=== PATIENT | female | born 1995 | race Caucasian/White ===

== ENCOUNTER 2020-05-03 15:29 | Emergency (ER) | payer OTHER ==
[~2020-05-03] VITALS: Ht 167.6 cm; Wt 67.1 kg
[2020-05-03 15:59] VITALS: BP 122/88
--- NOTE | 2020-05-03 16:02 | NUR ---
PT HAVING BLOOD DRAWN IN TRIAGE.
--- NOTE | 2020-05-03 16:05 | NUR ---
PT TAKEN TO US VIA W/C.
[2020-05-03 16:11] LABS: BASOPHILS % (AUTO) 0.6 % (0.0-2.0); EOSINOPHILS # (AUTO) 0.1 K/uL (0-0.4); EOSINOPHILS % (AUTO) 1.2 % (0.0-4.0); HEMATOCRIT 40.1 % (36-48); HEMOGLOBIN 13.5 g/dL (12.0-16.0); LYMPHOCYTES # (AUTO) 2.9 K/uL (2.5-16.5); LYMPHOCYTES % (AUTO) 43.1 % (20.5-51.1); MEAN CORPUSCULAR HEMOGLOBIN 30 pg (27-31); MEAN CORPUSCULAR HGB CONC 34 g/dL (33-37); MONOCYTES # (AUTO) 0.4 K/uL (0.8-1.0); MONOCYTES % (AUTO) 6.4 % (1.7-9.3); NEUTROPHILS # (AUTO) 3.3 K/uL (1.8-7.7); NEUTROPHILS % (AUTO) 48.7 % (42.2-75.2); PLATELET COUNT (AUTO) 428 K/uL (140-450); RED BLOOD CELL COUNT(AUTO) 4.55 MIL/uL (4.20-5.40); RED CELL DISTRIBUTION WIDTH 13.5 % (11.6-13.7); WHITE BLOOD COUNT (AUTO) 6.8 K/uL (4.8-10.8)
[2020-05-03 17:19] LABS: BILIRUBIN,URINE NEGATIVE (NEGATIVE); BLOOD, URINE TRACE-I (NEGATIVE); COLOR,URINE ORANGE (YELLOW); LEUKOCYTE ESTERASE ,URINE TRACE (NEGATIVE); NITRITE, URINE NEGATIVE (NEGATIVE); UGLUCOSE NEGATIVE (NEGATIVE)
[2020-05-03 17:24] LABS: APPEARANCE,URINE HAZY (CLEAR)
[2020-05-03 17:32] LABS: RBC,URINE NONE SEEN /HPF (0-5); WBC,URINE 0-5 /HPF (0-5)
[2020-05-03 18:21] VITALS: BP 115/82
--- NOTE | 2020-05-03 18:21 | NUR ---
Patient discharged with v/s stable. Written and verbal after care instructions given and explained. Patient verbalized understanding. Ambulatory with steady gait. All questions addressed prior to discharge. Advised to follow up with OBGYN. Pt provided with US report and labs for follow up.
== END 2020-05-03 18:21 | disposition home or self-care (01) ==
LOC: MED 15:29
DX: O20.0 Threatened abortion (principal); Z3A.01 Less than 8 weeks gestation of pregnancy
CPT/HCPCS: 36415; 76817; 81001; 81025; 84702; 85025; 86900; 86901; 99284

== ENCOUNTER 2021-07-29 18:08 | Emergency (ER) | payer OTHER ==
[~2021-07-29] VITALS: Ht 160 cm; Wt 67.1 kg
--- NOTE | 2021-07-29 18:16 | NUR ---
PT AMBULATED TO ER BED 9 WITH A STEADY GAIT.
[2021-07-29 18:23] VITALS: BP 134/80
--- NOTE | 2021-07-29 18:29 | NUR ---
26 y/o female, c/o facial swelling and rash that started this morning. pt states she was given new rx of vitamins, pt has been taking prenatals, but started taking iron last night, states after taking iron she has emesis episode. denies sob, cp, fever or chills. pt 21 weeks at this time currently has care. denies abd pain, vaginal bleeding or discharge. pmh: denies nka med: iron supplements, vitamins
[2021-07-29] MEDS ORDERED: DIPH25TA53 PO (18:35)
[2021-07-29] MEDS ORDERED: ONDA-188 PO (18:36)
[2021-07-29 18:43] VITALS: BP 134/80
--- NOTE | 2021-07-29 18:43 | NUR ---
no nursing interventions done at this time
--- NOTE | 2021-07-29 18:44 | NUR ---
Patient discharged with v/s stable. Written and verbal after care instructions given and explained. Patient alert, oriented and verbalized understanding of instructions. Ambulatory with spouse to car. All questions addressed prior to discharge. ID band removed. Patient advised to follow up with PMD. Rx of diphendyramine hcl, ondansetron (sent) given. Patient educated on indication of medication including possible reaction and side effects. Opportunity to ask questions provided and answered.
== END 2021-07-29 18:43 | disposition home or self-care (01) ==
LOC: MED 18:08
DX: O21.8 Other vomiting complicating pregnancy (principal); O99.712 Diseases of the skin and subcutaneous tissue complicating pregnancy, second trimester; R21 Rash and other nonspecific skin eruption; T78.40XA Allergy, unspecified, initial encounter; Z79.899 Other long term (current) drug therapy; Z3A.20 20 weeks gestation of pregnancy; X58.XXXA Exposure to other specified factors, initial encounter
CPT/HCPCS: 99283

== ENCOUNTER 2021-10-22 12:44 | Emergency (ER) | payer OTHER ==
[~2021-10-22] VITALS: Ht 157.5 cm; Wt 72.1 kg
[~2021-10-22 12:44] MED LIST: DIPH25TA53 PO; ONDA-188 PO
[2021-10-22 12:57] VITALS: BP 123/77
--- NOTE | 2021-10-22 13:06 | NUR ---
PT AMBULATE TO ROOM 3 STEADY GAIT
[2021-10-22] MEDS ORDERED: ACET-9882 PO (13:57)
[2021-10-22] MEDS ORDERED: DIPH-670 PO (13:57)
--- NOTE | 2021-10-22 14:20 | NUR ---
Patient discharged with v/s stable. Written and verbal after care instructions given and explained. Patient alert, oriented and verbalized understanding of instructions. Ambulatory with steady gait. All questions addressed prior to discharge. ID band removed. Patient advised to follow up with PMD. Rx of ACETAMINOPHEN BENADRYL given. Patient educated on indication of medication including possible reaction and side effects. Opportunity to ask questions provided and answered.
--- NOTE | 2021-10-22 14:20 | NUR ---
Note pedroanita in EDM - 10/22/21 at 1637 by JEANETTE Patient discharged with v/s stable. Written and verbal after care instructions given and explained. Patient alert, oriented and verbalized understanding of instructions. Ambulatory with steady gait. All questions addressed prior to discharge. ID band removed. Patient advised to follow up with PMD. Rx of ROBITUSSIN given. Patient educated on indication of medication including possible reaction and side effects. Opportunity to ask questions provided and answered.
--- NOTE | 2021-10-22 14:21 | NUR ---
The patient's care was reviewed and supervised by Whit Cobian RN.
== END 2021-10-22 14:20 | disposition home or self-care (01) ==
LOC: MED 12:44
DX: J06.9 Acute upper respiratory infection, unspecified (principal); Z79.899 Other long term (current) drug therapy
CPT/HCPCS: 99282

== ENCOUNTER 2023-04-14 02:05 | Emergency (ER) | payer OTHER ==
[~2023-04-14] VITALS: Ht 160 cm; Wt 72.1 kg
[~2023-04-14 02:05] MED LIST changes: +ACET-9882 PO; +DIPH-670 PO
[2023-04-14 02:18] VITALS: BP 113/65; PULSE 75; RESP 20; TEMP 97.5; O2SAT 99
[2023-04-14] MEDS ORDERED: PRED20TA5 PO (02:46)
[2023-04-14] MEDS ORDERED: DIPH25TA53 PO (02:46)
[2023-04-14 02:50] VITALS: BP 113/65; PULSE 75; RESP 20; TEMP 97.5; O2SAT 99
== END 2023-04-14 02:50 | disposition home or self-care (01) ==
LOC: MED 02:05
DX: R21 Rash and other nonspecific skin eruption (principal); Z79.899 Other long term (current) drug therapy
CPT/HCPCS: 99283

== ENCOUNTER 2023-04-18 23:31 | Emergency (ER) | payer OTHER ==
[~2023-04-18] VITALS: Ht 160 cm; Wt 74.4 kg
[~2023-04-18 23:31] MED LIST changes: +PRED20TA5 PO
[2023-04-18 23:58] VITALS: BP 130/86; PULSE 104; RESP 16; TEMP 97; O2SAT 99
[2023-04-19] MEDS ORDERED: ONDANSETRON 4 MG/2 ML VIAL IVP ONE (01:45)
[2023-04-19] MEDS ORDERED: MECLIZINE 25 MG TAB PO ONE (01:45)
[2023-04-19] MEDS ORDERED: NACL 0.9% 1,000 ML IV ONE (01:45)
[2023-04-19 02:26] LABS: BASOPHILS % (AUTO) 0.5 % (0.0-2.0); EOSINOPHILS # (AUTO) 0.8 K/uL (0-0.4); HEMATOCRIT 37.7 % (36-48); HEMOGLOBIN 12.4 g/dL (12.0-16.0); LYMPHOCYTES # (AUTO) 3.9 K/uL (2.5-16.5); LYMPHOCYTES % (AUTO) 50.2 % (20.5-51.1); MEAN CORPUSCULAR HEMOGLOBIN 29 pg (27-31); MEAN CORPUSCULAR HGB CONC 33 g/dL (33-37); MEAN CORPUSCULAR VOLUME 89.2 fL (80-94); MONOCYTES # (AUTO) 0.7 K/uL (0.8-1.0); MONOCYTES % (AUTO) 8.7 % (1.7-9.3); NEUTROPHILS # (AUTO) 2.4 K/uL (1.8-7.7); NEUTROPHILS % (AUTO) 30.6 % (42.2-75.2); PLATELET COUNT (AUTO) 424 K/uL (140-450); RED BLOOD CELL COUNT(AUTO) 4.23 MIL/uL (4.20-5.40); RED CELL DISTRIBUTION WIDTH 13.8 % (11.6-13.7); WHITE BLOOD COUNT (AUTO) 7.8 K/uL (4.8-10.8)
[2023-04-19 02:52] LABS: APPEARANCE,URINE CLEAR (CLEAR); BILIRUBIN,URINE NEGATIVE (NEGATIVE); BLOOD, URINE NEGATIVE (NEGATIVE); COLOR,URINE YELLOW (YELLOW); LEUKOCYTE ESTERASE ,URINE NEGATIVE (NEGATIVE); NITRITE, URINE NEGATIVE (NEGATIVE); PROTEIN,URINE NEGATIVE (NEGATIVE); UGLUCOSE NEGATIVE (NEGATIVE); UROBILINOGEN,URINE 0.2 EU/dL (0.2 - 1)
[2023-04-19 03:04] LABS: ANION GAP 12.5 (8-16); CALCIUM 8.1 mg/dL (8.5-10.1); CARBON DIOXIDE 25.2 mmol/L (21-32); CREATININE 0.7 mg/dL (0.6-1.3); POTASSIUM 3.7 mmol/L (3.5-5.1)
[2023-04-19 03:06] LABS: FLU A ANTIGEN negative (NEGATIVE); FLU B ANTIGEN NEGATIVE (NEGATIVE)
[2023-04-19] MEDS ORDERED: ONDA-188 PO (03:30)
[2023-04-19] MEDS ORDERED: MECL-303 PO (03:30)
[2023-04-19 03:46] VITALS: BP 120/69; PULSE 89; RESP 16; TEMP 97.9; O2SAT 98
== END 2023-04-19 03:46 | disposition home or self-care (01) ==
LOC: MED 23:31
DX: B34.9 Viral infection, unspecified (principal); Z20.822 Contact with and (suspected) exposure to COVID-19; I95.1 Orthostatic hypotension; Z79.899 Other long term (current) drug therapy
CPT/HCPCS: 36415; 71046; 80048; 81003; 81025; 85025; 93005; 96361; 96374; 99285; J2405; J7030; J8597